=== PATIENT | male | born 1990 | race Caucasian/White ===

== ENCOUNTER 2017-04-09 17:47 | Emergency (ER) | payer OTHER ==
[~2017-04-09] VITALS: Ht 172.7 cm; Wt 84.0 kg
[~2017-04-09 17:47] MED LIST: CIPRO500 MG PO; DELTASONE20 MG PO; GENTAMICIN; LAMICTAL; PROMETHAZINE HC25 M1 PO; SEROQUEL XR400 MG PO; ZOFRAN ODT4 MG PO; ZOFRAN4 MG PO; [UNRECOGNIZED DRUG - OTHER]
[2017-04-09 19:06] LABS: HEMATOCRIT 49.8 % (38.0-50.0); MCH 29.9 PG (29.0-34.0); MCHC 35.3 G/DL (30.0-36.0); MCV 84.6 FL (86-99); MEAN PLAT.VOLUME 11.1 uM^3 (9.0-12.4); PLATELET COUNT 185 K/uL (156-360); RBC DIS.WIDTH-CV 12.2 % (11.8-14.6); RBC DIS.WIDTH-SD 37.2 % (39-53); RED BLOOD COUNT 5.89 M/uL (4.00-5.50); WHITE BLOOD COUNT 9.6 K/uL (4.1-10.2)
[2017-04-09 19:15] LABS: CHLORIDE 107 mEq/L (99-109); POTASSIUM 4.1 mEq/L (3.7-5.4); SODIUM 139 mEq/L (136-147)
[2017-04-09 19:17] LABS: GLUCOSE 98 mg/dL (70-99)
[2017-04-09 19:18] LABS: ANION GAP 12 MEQ/L (2-14)
[2017-04-09 19:19] LABS: TOTAL BILIRUBIN 1.6 mg/dL (0.0-1.0)
[2017-04-09 19:20] LABS: ALKALINE PHOSPHATASE 72 IU/L (3-129)
[2017-04-09 19:21] LABS: GFR ESTIMATE (CALCULATED) > 59 mL/min/
[2017-04-09 19:22] LABS: UREA NITROGEN (BUN) 15 mg/dL (9-23)
[2017-04-09 19:24] LABS: LIPASE 9 U/L (1.0-51.0)
[2017-04-09 19:48] LABS: C DIFF TOXIN NEGATIVE (NEGATIVE)
[2017-04-09 19:51] LABS: PROBE CHECK PASS; SPECIMEN PROCESSING CONTROL PASS
[2017-04-09] MEDS ORDERED: BENTYL20 MG PO (21:32)
[2017-04-09] MEDS ORDERED: ZOFRAN ODT4 MG PO (21:32)
[2017-04-09 22:30] VITALS: BP 98/59
== END 2017-04-09 22:35 | disposition home or self-care (01) ==
LOC: EME 17:47 → RME 17:47
PROVIDERS: Nurse Practitioner Family
DX: R11.2 Nausea with vomiting, unspecified (principal); R19.7 Diarrhea, unspecified; R10.31 Right lower quadrant pain; E86.0 Dehydration; R15.9 Full incontinence of feces; R00.0 Tachycardia, unspecified; Z72.0 Tobacco use
CPT/HCPCS: 74177; 80053; 81003; 83690; 85027; 87493; 87506; 99281; 99285; J1885; J2405; J7030; J7040

== ENCOUNTER 2017-11-04 02:24 | Emergency (ER) | payer OTHER ==
[~2017-11-04] VITALS: Ht 172.7 cm; Wt 81.8 kg
[~2017-11-04 02:24] MED LIST changes: +BENTYL20 MG PO
[2017-11-04] MEDS ORDERED: PERCOCET 5/31 TABLET PO (03:23)
[2017-11-04 03:44] VITALS: BP 128/84
== END 2017-11-04 03:44 | disposition home or self-care (01) ==
LOC: EME 02:24
DX: M25.511 Pain in right shoulder (principal); M79.601 Pain in right arm; S42.301D Unspecified fracture of shaft of humerus, right arm, subsequent encounter for fracture with routine healing; W10.9XXA Fall (on) (from) unspecified stairs and steps, initial encounter; F17.200 Nicotine dependence, unspecified, uncomplicated; Z88.2 Allergy status to sulfonamides
CPT/HCPCS: 73030; 73060; 99281; 99284